=== PATIENT | male | born 2005 | race Two or more races ===

== ENCOUNTER 2025-04-13 23:26 | Emergency (ER) | payer OTHER, MEDICAID, SELFPAY ==
[2025-04-13 23:39] VITALS: BMI 36.3
[2025-04-13 23:49] VITALS: BP 121/73; PULSE 115; RESP 19; TEMP 37.2; O2SAT 96
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
== END 2025-04-14 00:13 | disposition left against medical advice (07) ==
PROVIDERS: Emergency Provider Emergency Medicine
DX: S09.93XA Unspecified injury of face, initial encounter (principal); S19.9XXA Unspecified injury of neck, initial encounter; Y04.0XXA Assault by unarmed brawl or fight, initial encounter; Z53.29 Procedure and treatment not carried out because of patient's decision for other reasons
CPT/HCPCS: 99281